=== PATIENT | female | born 1950 | race Caucasian/White ===

== ENCOUNTER → 2017-12-26 | Outpatient (CLI) | payer MEDICARE | END | disposition home or self-care (01) | LOC: RAH 13:19 | PROVIDERS: ATTEND Family Medicine | DX: R60.0 Localized edema (principal); J44.9 Chronic obstructive pulmonary disease, unspecified | CPT/HCPCS: 93970 ==

== ENCOUNTER → 2024-08-13 | Outpatient (CLI) | payer MEDICARE ==
--- NOTE | 2024-08-13 22:34 | HMCIMG ---
NM BONE SCAN 3 PHASE REASON: LT knee pain/ortho prosthetic. COMPARISON: None TECHNIQUE: 3 phase bone scan was performed with 22 mCi of technetium MDP through intravenous route. Specific attention is given to the left knee. FINDINGS: Increased activity is seen in the left knee on all 3 phase may be related to infectious process versus loosening. Clinical correlation is recommended. IMPRESSION: Increased activity is seen in the left knee on all 3 phase may be related to infectious process versus loosening. Clinical correlation is recommended.
== END | disposition home or self-care (01) ==
LOC: RAH 13:43
PROVIDERS: ATTEND Student in an Organized Health Care Education/Training Program
DX: T84.84XA Pain due to internal orthopedic prosthetic devices, implants and grafts, initial encounter (principal); X58.XXXA Exposure to other specified factors, initial encounter
CPT/HCPCS: 78315; A9503

== ENCOUNTER 2024-11-15 09:28 | Emergency (ER) | payer MEDICARE ==
[~2024-11-15] VITALS: Ht 162.6 cm; Wt 93.4 kg
[~2024-11-15 09:28] MED LIST: CALCIUM PO; CYCL-309 PO; DOCU-116 PO; GABA100C PO; HYDR-4060 PO; LOSA100T59 PO; MAGN400C PO; METF-444 PO; MVI PO; PRAV40TA3 PO; PULMICORT IH; TIRZEPATIDE SQ; TRIA1CAP87 PO; XYZAL PO
[2024-11-15] MEDS: Solu-medROL 40MG VIAL IM ONE (10:22)
[2024-11-15] MEDS: HYDROcodone/APAP 5/325 1 TAB TABLET PO ONE (10:22)
--- NOTE | 2024-11-15 10:27 | NUR ---
ULTRASOUND AT BEDSIDE
--- NOTE | 2024-11-15 10:51 | ERN ---
General Chief Complaint: Skin Rash/Abscess Stated Complaint: RASH Time Seen by MD: 09:30 History of Present Illness Initial Comments 74-year-old female who presents for left leg swelling and rash. Patient had a total knee replacement on the left on 11/09/[address] Jones. She reports that since then she has developed a rash throughout the whole leg and a bit of swelling. She reports that she has had multiple skin issues in multiple allergic reactions before in the past, usually while receiving blood or after a tourniquet or two skin adhesions. She has tried some topical steroid cream but they are still has a bit of a rash that is itchy. She denies any systemic symptoms. There is some swelling from the mid thigh down. Neurovascularly intact. No fevers. The wound appears well healing with no signs of septic arthritis. Allergies: Coded Allergies: hydroxyzine (Unverified Allergy, Unknown, 11/04/24) meperidine (Unverified Allergy, Unknown, 11/04/24) Home Meds Active Scripts Prednisone (Prednisone) 20 Mg Tablet, 1 TAB PO BID for 5 Days, #10 TAB 0 Refills Prov:CORY NICHOLSON DO 11/15/24 Docusate Sodium (Colace) 100 Mg Capsule, 1 CAP PO BID for 30 Days, #60 CAP 0 Refills Prov:DOROTEO JONES MD 11/11/24 Hydrocodone/Acetaminophen (Hydrocodon-Acetaminophen 5-325) 5 Mg-325 Mg Tablet, 1-2 TAB PO Q4H PRN for MODERATE/SEVERE PAIN LEVEL, #56 TAB 0 Refills Prov:DOROTEO JONES MD 11/11/24 Gabapentin (Neurontin) 100 Mg Capsule, 100 MG PO BID, #60 CAP 0 Refills Prov:DOROTEO JONES MD 11/11/24 Cyclobenzaprine HCl (Cyclobenzaprine HCl) 10 Mg Tablet, 5 MG PO Q8H PRN for MUSCLE SPASMS, #45 TAB 0 Refills Prov:DOROTEO JONES MD 11/11/24 Reported Medications Magnesium Oxide (Magnesium) 400 Mg Magnesium Capsule, 400 MG PO DAILY, CAP 11/04/24 [Calcium] No Conflict Check, 1 TAB PO DAILY 11/04/24 [Xyzal] No Conflict Check, PO HS 11/04/24 Triamterene/Hydrochlorothiazid (Triamterene-Hctz 37.5-25 mg Cp) 37.5 Mg-25 Mg Capsule, 1 EACH PO HS, CAP 11/04/24 Metformin HCl (Metformin HCl) 500 Mg Tablet, 500 MG PO HS, TAB 11/04/24 Pravastatin Sodium (Pravastatin Sodium) 40 Mg Tablet, 40 MG PO HS, TAB 11/04/24 Losartan Potassium (Losartan Potassium) 100 Mg Tablet, 100 MG PO HS, TAB 11/04/24 [Pulmicort] No Conflict Check, 1 PUFF IH AM 11/04/24 [Tirzepatide] No Conflict Check, SQ SAT 11/04/24 [Mvi] No Conflict Check, 1 TAB PO DAILY 11/04/24 Past Medical History Past Medical History: Asthma, Hypertension Past Surgical History: Other Surgical History Other: LEFT KNEE SURGERY, MULTIPLE FEET SURGERIES ROS Dictation CONSTITUTIONAL: No chills, no fever, no weakness, no diaphoresis, no malaise. HEAD/FACE: No signs of trauma. EENT: No eye pain, no blurred vision, no tearing, no double vision, no ear pain, no ear discharge, no nose pain, no nasal congestion, no throat pain, no throat swelling, no mouth pain. RESPIRATORY: No cough, no orthopnea, no SOB, no stridor, no wheezing. CARDIOVASCULAR: No chest pain, no edema, no palpitations, no syncope. GASTROINTESTINAL/ABDOMINAL: No abdominal pain, no constipation, no diarrhea, no nausea, no vomiting. GENITOURINARY: No abnormal discharge, no dysuria, no frequent urination, no hematuria. No complaints of pain in the genitals. MUSCULOSKELETAL: No back pain, no gout, no joint pain, no joint swelling, no muscle pain, no muscle stiffness, no neck pain. INTEGUMENTARY: Left leg swelling and rash NEUROLOGICAL/PSYCH: No anxiety, not depressed, no emotional problem, no headache, no numbness, no pre-existing deficit, no history of seizures, no tremors, no weakness. HEMATOLOGIC/LYMPHATIC: Not anemic, no history of blood clots, no apparent bleeding, no bruising, glands not swollen. All Systems Negative, Except as Noted. Physical Exam Physical Exam Dictation VITAL SIGNS: Reviewed. GENERAL APPEARANCE: Alert, oriented x3, no acute distress, obese. HEAD AND FACE: Non-traumatic. EYES: PERRL, pink conjunctivas, eyelid no trauma, anterior chamber clear. EARS: Pinnas intact and no signs of trauma or erythema. Ear canals clear and no discharge. TMs no erythema. NOSE: No discharge, no bleeding. OROPHARYNX: Mouth normal, teeth no caries, tongue pink. Pharynx clear, no erythema. Tonsils no exudates, no abscesses noted. Mucous membrane moist. NECK: Supple, non-tender, no thyromegaly, no masses, no JVD, no bruits. BREAST: Deferred. CHEST: No tenderness, no crepitus, no paradoxical movement, no retractions. LUNGS: Clear, well-ventilated, symmetric, no rales, no wheezing, no rhonchi, no stridor, good breath sounds bilaterally. HEART: Regular rate, regular rhythm, no murmur, no gallops. VASCULAR: No peripheral edema. ABDOMEN: Soft, positive bowel sounds, nondistended, no guarding, nontender, no rebound, no masses no hepatomegaly, no splenomegaly, no Phillip's sign, no hernias. RECTAL: Deferred. GENITAL: Deferred. NEUROLOGICAL: Normal speech, gross motor function intact, gross sensory function intact. MUSCULOSKELETAL: Left leg swelling, we will healing wound over the knee, neurovascularly intact, rash EXTREMITIES: Nontender, full range of motion. SKIN: Color pink, dry, no turgor, no rash, no lacerations, no abrasions, no contusions. LYMPHATICS: Deferred. MDM CC: Left leg swelling rash. Recent left knee surgery Historian: Patient Comorbidities: Recent left knee surgery, asthma, hypertension, sensitive skin with multiple allergic reactions Limitations by social determinants of health: None Differential diagnosis: DVT, postop swelling, postop allergic reaction, shingle s, other. On clinical exam there is no signs of infection. She has a range of motion to the knee, well healing wound. Low suspicion for a septic joint. There is a rash throughout most of the leg, it does not fit a dermatomal type pattern. It does not appear to be shingles. I suspect allergic reaction. Occurs where the tourniquet was above her knee and down. She was neurovascularly intact. It could be a DVT. Ultrasound DVT studies unremarkable As independently interpreted by me. No signs of DVT. Patient reports she was sensitive skin and she has had multiple allergic reactions. She reports that she thinks this is allergic reaction. She was quite itchy. She has tried omtc-yzo-riaiqln steroid cream. Patient did received IM Solu-Medrol here. We will prescribe prednisone and recommend symptomatic support. Low suspicion for any life-threatening compromise or limb threatening compromise at this time. She was good follow up as an outpatient. ED Course Orders Procedure Category Date Status Time Us Venous Doppler US 11/15/24 Resulted Unilateral 10:15 Methylprednisolone PHA 11/15/24 Complete Succ 40mg (Solu-Medro 10:30 Hydrocodone/Apap PHA 11/15/24 Complete 5/325 ([place] 5/325mg) 10:30 Current Medications Medications (Trade) Dose Ordered Sig/[place]enn[place] Route PRN Reason Start Time Stop Time Status Last Admin Dose Admin Acetaminophen/ Hydrocodone Bitart (NORco 5/325MG) 1 tab ONCE ONCE PO 11/15/24 10:30 11/15/24 10:31 DC 11/15/24 10:22 Methylprednisolone Sodium Succinate (Solu-medROL 40MG) 40 mg ONCE ONCE IM 11/15/24 10:30 11/15/24 10:31 DC 11/15/24 10:22 Vital Signs Date Time Temp Pulse Resp B/P (MAP) Pulse Ox O2 Delivery O2 Flow Rate FiO2 11/15/24 11:03 98.2 90 20 140/89 98 Room Air* 0 21 11/15/24 09:29 98.1 83 16 126/50 99 Room Air DX & DISP Disposition: Discharge Departure Impression: Primary Impression: Allergic reaction Additional Impressions: Post-operative state, Leg swelling Condition: Stable Scripts Prednisone (Prednisone) 20 Mg Tablet 1 TAB PO BID for 5 Days, #10 TAB 0 Refills Prov: BHARATCORY DO 11/15/24 Additional Instructions: You appear to have an allergic reaction in the leg. There are no signs of blood clot on the ultrasound and your leg. The swelling is likely postoperative. You received a dose of Solu-Medrol, which is an anti-inflammatory steroid, here in the ER. I have also prescribed you prednisone, which is an anti-inflammatory steroid. You can take this twice per day for the next five days. You can apply a topical steroid cream, such as hydrocortisone, to the rash. You can also try an jchw-yna-rvoiaap antihistamine such as Benadryl or Zyrtec. Please follow up with your primary doctor or with Dr. Jones as already scheduled. Referrals: YADIRA RIDER MD (PCP) CORY NICHOLSON DO Nov 15, 2024 10:51
[2024-11-15] MEDS ORDERED: PRED20TA3 PO (10:55)
[2024-11-15 11:03] VITALS: BP 140/89; PULSE 90; RESP 20; TEMP 98.3; O2SAT 98
--- NOTE | 2024-11-15 11:22 | HMCIMG ---
US VENOUS DOPPLER UNILATERAL HISTORY: Left lower extremity swelling COMPARISON: None TECHNIQUE: Left lower extremity venous Doppler ultrasound study was performed. FINDINGS: Left distal superficial femoral vein is not well visualized limiting evaluation. The left common femoral, femoral, popliteal, and posterior tibial veins are visualized. Normal flow with augmentation and compressibilities are demonstrated. Left greater saphenous vein is patent. IMPRESSION: 1. No evidence of deep venous thrombosis is seen.
== END 2024-11-15 11:14 | disposition home or self-care (01) ==
LOC: EDH 09:28
DX: T78.40XA Allergy, unspecified, initial encounter (principal); M79.89 Other specified soft tissue disorders; J45.909 Unspecified asthma, uncomplicated; I10 Essential (primary) hypertension; M79.662 Pain in left lower leg; Z79.51 Long term (current) use of inhaled steroids; Z79.52 Long term (current) use of systemic steroids; Z79.899 Other long term (current) drug therapy; Z88.5 Allergy status to narcotic agent; Z96.652 Presence of left artificial knee joint; X58.XXXA Exposure to other specified factors, initial encounter
CPT/HCPCS: 99285; 93971; 96372; J2919

== ENCOUNTER 2025-03-10 06:23 | Day surgery (SDC) | payer MEDICARE ==
[2025-03-08 13:35] LABS: BASOPHILS # (AUTO) 0.02 K/uL (0.00-0.20); BASOPHILS % (AUTO) 0.2 % (0.0-5.0); HEMATOCRIT 37.4 % (36-48); IMMATURE GRANULOCYTE ABSOLUTE 0.06 K/uL (0-1); LYMPHOCYTES # (AUTO) 1.2 K/uL (1.0-4.8); LYMPHOCYTES % (AUTO) 10.2 % (21.0-51.0); MEAN CORPUSCULAR HEMOGLOBIN 29.5 pg (27.0-33.0); MEAN CORPUSCULAR HGB CONC 33.7 g/dL (32.0-36.0); MEAN CORPUSCULAR VOLUME 87.6 fL (79-99); MONOCYTES # (AUTO) 0.3 K/uL (0.1-1.0); MONOCYTES % (AUTO) 2.1 % (3.0-13.0); NEUTROPHILS # (AUTO) 10.2 K/uL (1.8-7.7); PLATELET COUNT (AUTO) 250 K/uL (130-400); RED BLOOD CELL COUNT(AUTO) 4.27 MIL/uL (4.00-5.50); RED CELL DISTRIBUTION WIDTH 13.5 % (11.0-15.5); WHITE BLOOD COUNT (AUTO) 11.8 K/uL (4.8-10.8)
[2025-03-08 13:43] LABS: CREATININE 1.1 mg/dL (0.5-1.0)
[2025-03-08 14:28] VITALS: BP 151/81; PULSE 68; RESP 14; TEMP 97.6
--- NOTE | 2025-03-08 15:25 | EKG ---
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
--- NOTE | 2025-03-09 15:32 | NUR ---
REPORT FAXED OVER CBC TO DR DALY/KIM. OK TO PROCEED PER MINNA KRUEGER
[2025-03-10] VITALS (13 sets, daily range): BP systolic 133–168; BP diastolic 51–78; PULSE 74–81; RESP 15–16; TEMP 96.8–97.8
[~2025-03-10] VITALS: Ht 162.6 cm; Wt 96.5 kg
[~2025-03-10 06:23] MED LIST changes: -CYCL-309 PO; -DOCU-116 PO; -GABA100C PO; -HYDR-4060 PO; +LEVO5TAB29 PO; -MVI PO; -PRAV40TA3 PO; +PRAV40TA62 PO; -TIRZEPATIDE SQ; +VITAMIN PO; +WOMEN S MVI PO; -XYZAL PO
[2025-03-10] MEDS: LACTATED RINGERS 1000ML 1,000 ML IV ONE (07:01)
[2025-03-10] MEDS ORDERED: acetaMINOPHEN 100 ML ONE (07:28)
[2025-03-10] MEDS ORDERED: FAMOTIDINE 20MG VIAL IV ONE (07:28)
[2025-03-10] MEDS ORDERED: rocuRONium bROMide 10MG/1ML 5ML VL ONE (07:32)
[2025-03-10] MEDS ORDERED: proPOFol 10 MG/ML 20ML VIAL IV ONE (07:32)
[2025-03-10] MEDS ORDERED: FENTanyl CITRate PF 50 MCG/1 ML 2ML VIAL ONE (07:32)
[2025-03-10] MEDS ORDERED: MIDAZOLAM HCL 1 MG/ML 2ML VIAL ONE (07:32)
[2025-03-10] MEDS ORDERED: LIDOCAINE PF 100MG/5ML (2%) SYRINGE 5ML ONE (07:32)
[2025-03-10] MEDS ORDERED: ondanSETRON 4MG INJ ONE (08:22)
[2025-03-10] MEDS ORDERED: dexaMETHasone SOD PHOSPHATE 4 MG/ML 1ML VIAL ONE (08:22)
[2025-03-10] MEDS ORDERED: ceFAZolin SODIUM 1 GM VIAL ONE (08:24)
[2025-03-10] MEDS: LIDOCAINE 1%-EPI 1:100,000 20 ML VIAL ONE (08:37)
[2025-03-10] MEDS ORDERED: phenylEPHRINE HCL 10 MG/ML 1ML VIAL IV ONE (08:37)
[2025-03-10] MEDS: BUPIvacaine/PF 0.25% 30ML VIAL IJ ONE (08:37)
[2025-03-10] MEDS ORDERED: LIDOCAINE HCL 2% PF 20 ML JEL DISP.SYRIN MM ONE (08:51)
--- NOTE | 2025-03-10 09:06 | OP ---
Operative Note: DATE OF PROCEDURE: 03/10/25 SURGEON: KENNETH DALY MD DOWELER: [None] ANESTHESIA: [General Anesthesia] ANESTHESIOLOGIST/CONTACT LENS FLASHING PUNCHER: [] PREOPERATIVE DIAGNOSIS: [Rectal Polyp] POSTOPERATIVE DIAGNOSIS: [Rectal Polyp. Prolapsing internal hemorrhoids.] SYNOPSIS: [Complete Excision of Rectal Polyp] PROCEDURE: [Transanal Excision of Rectal Polyp to and including muscle. Rubber band ligation of internal hemorrhoid x 1.] ESTIMATED BLOOD LOSS: [Minimal.] INDICATIONS: [The patient is a very pleasant 74 year old female who presents with a rectal polyp and prolapsing internal hemorrhoids. She was offered operative management. CRAB was discussed with her in detail. Risks include infection, bleeding, injury to surrounding structures, recurrence and need for further procedures. All questions were answered to her satisfaction and she would like to proceed with surgery.] DESCRIPTION OF PROCEDURE: [The patient was placed in the dorsal lithotomy position after GETA was administered. The pernieum was prepped and draped sterile. Local anesthetic was injected as a block. An anoscope was inserted and there was a small rectal polyp in the posterior midline just above the dentate line. This was removed down to and including some muscle. It was very small polyp. There was a prolapsing internal hemorrhoid in the left lateral. It was ligated with chromic tie. The other hemorrhoids were cauterized. Excellent hemostasis was achieved. There were no complications. Instrument, sponge and needle count were reported correct x 2 by nursing staff. ] KENNETH DALY MD Mar 10, 2025 09:06
--- NOTE | 2025-03-10 10:10 | NUR ---
Full and complete discharge instructions given to Patient and Family both verbally and in writing. Explained Surgical procedure precautions and follow up. No evidence of bleeding, bruising or hematoma. All questions answered. PIV removed with catheter tip intact. Friend at bedside appearing supportive. W/C to POV with Friend to home
== END 2025-03-10 10:17 | disposition home or self-care (01) ==
LOC: DAH 06:23
PROVIDERS: ATTEND Surgery
DX: K64.0 First degree hemorrhoids (principal); D12.8 Benign neoplasm of rectum; J44.9 Chronic obstructive pulmonary disease, unspecified; I10 Essential (primary) hypertension; E78.5 Hyperlipidemia, unspecified; M19.90 Unspecified osteoarthritis, unspecified site; E11.9 Type 2 diabetes mellitus without complications; Z96.652 Presence of left artificial knee joint; Z88.1 Allergy status to other antibiotic agents; Z88.8 Allergy status to other drugs, medicaments and biological substances; Z79.84 Long term (current) use of oral hypoglycemic drugs; Z79.899 Other long term (current) drug therapy
CPT/HCPCS: 80048; 85025; 36415; 93005; 46945; 46611; 82948; 88305; A6260; J1100; A4663; A4649 ×2; A4606; J7120; J3490 ×2; J3010; J0665; J2003; J2250; J2704; J2405; J2371; A4215; A4222; A4216; A4223 ×2; A4221; J0690

== ENCOUNTER → 2025-04-06 | Outpatient (CLI) | payer OTHER ==
--- NOTE | 2025-04-07 07:20 | HMCIMG ---
EXAM: CT Cardiac calcium scoring. CLINICAL HISTORY: Screening. TECHNIQUE: Thin collimated axial CT cardiac images were obtained. A CT scan is done according to ALARA (As Low As Reasonably Achievable). CONTRAST: None. COMPARISON: None provided. FINDINGS: Calcium Score: VESSEL Number of lesions Volume mm3 Equi. Mass/mg Calcium score LM 0 0 - 0 LAD 0 0 - 0 LCX 0 0 - 0 RCA 0 0 - 0 Total 0 0 - 0 IMPRESSION: The total calcium score is 0. No identifiable calcification. /[place]
== END | disposition home or self-care (01) ==
LOC: RAH 15:02
PROVIDERS: ATTEND Internal Medicine
DX: Z13.6 Encounter for screening for cardiovascular disorders (principal)
CPT/HCPCS: 75571